=== PATIENT | male | born 1955 | race Caucasian/White ===

== ENCOUNTER 2017-04-24 10:27 | Day surgery (SDC) | payer BC ==
[~2017-04-24] VITALS: Ht 180.3 cm; Wt 73.5 kg
[2017-04-24] VITALS (10 sets, daily range): BP systolic 107–155; BP diastolic 50–79; PULSE 59–72; TEMP 97.3–98.4
[2017-04-24] MEDS ORDERED: DILANTIN 100MG100 MG PO ×2 (11:28)
[2017-04-24] MEDS ORDERED: PRINIVIL10 MG PO (11:29)
[2017-04-24] MEDS ORDERED: LIPITOR 40MG TA40 MG PO (11:29)
[2017-04-24] MEDS ORDERED: IMDUR 30MG30 MG/TAB PO (11:30)
[2017-04-24] MEDS ORDERED: NORVASC 5MG5 MG/TAB PO (11:30)
[2017-04-24] MEDS ORDERED: PROTONIX 40MG T40 MG PO (11:30)
[2017-04-24] MEDS ORDERED: ASPIRIN E.C. 8181 MG PO (11:31)
[2017-04-24] MEDS ORDERED: NITROSTAT0.4 MG/TAB SL (11:31)
[2017-04-24] MEDS ORDERED: MULTI VITAMINS1 TAB PO (11:32)
[2017-04-24] MEDS ORDERED: MAG-OX 400400 MG/TAB PO (11:32)
[2017-04-25 02:10] VITALS: BP 101/56; PULSE 60; TEMP 97.5
[2017-04-25 06:02] VITALS: BP 113/59; PULSE 62; TEMP 97.6
[2017-04-25 10:03] VITALS: BP 120/50; PULSE 66; TEMP 97.5
[2017-04-25 13:19] VITALS: BP 108/56; PULSE 63; TEMP 98
== END 2017-04-25 15:10 | disposition home or self-care (01) ==
LOC: SDCO 10:27 → SURG 15:35 → SDCO 04-25 15:10
DX: C67.9 Malignant neoplasm of bladder, unspecified (principal); N30.30 Trigonitis without hematuria; N30.20 Other chronic cystitis without hematuria; M19.049 Primary osteoarthritis, unspecified hand; I25.2 Old myocardial infarction; I10 Essential (primary) hypertension; F17.210 Nicotine dependence, cigarettes, uncomplicated; E78.00 Pure hypercholesterolemia, unspecified; Z88.2 Allergy status to sulfonamides; Z82.49 Family history of ischemic heart disease and other diseases of the circulatory system; Z68.22 Body mass index [BMI] 22.0-22.9, adult
CPT/HCPCS: OP; C1758; C1769; C2617; J0690; J1170; J2704; J3010; J7120

== ENCOUNTER 2017-06-12 05:22 | Day surgery (SDC) | payer BC ==
[~2017-06-12] VITALS: Ht 180.3 cm; Wt 73.2 kg
[~2017-06-12 05:22] MED LIST: ASPIRIN E.C. 8181 MG PO; DILANTIN 100MG100 MG PO; IMDUR 30MG30 MG/TAB PO; LIPITOR 40MG TA40 MG PO; MAG-OX 400400 MG/TAB PO; MULTI VITAMINS1 TAB PO; NITROSTAT0.4 MG/TAB SL; NORVASC 5MG5 MG/TAB PO; PRINIVIL10 MG PO; PROTONIX 40MG T40 MG PO
[2017-06-12 05:57] VITALS: BP 118/61; PULSE 72; TEMP 97.3
[2017-06-12 09:35] VITALS: BP 127/65; PULSE 66; TEMP 97.2
[2017-06-12 09:45] VITALS: TEMP 97.2
[2017-06-12 09:50] VITALS: BP 123/67; PULSE 66
[2017-06-12 10:10] VITALS: BP 118/66; PULSE 67
== END 2017-06-12 12:11 | disposition home or self-care (01) ==
LOC: SDCO 05:22
DX: C67.9 Malignant neoplasm of bladder, unspecified (principal); N30.30 Trigonitis without hematuria; N30.00 Acute cystitis without hematuria; I10 Essential (primary) hypertension; E78.00 Pure hypercholesterolemia, unspecified; Z79.82 Long term (current) use of aspirin; F17.210 Nicotine dependence, cigarettes, uncomplicated; Z88.2 Allergy status to sulfonamides; Z68.22 Body mass index [BMI] 22.0-22.9, adult; M19.049 Primary osteoarthritis, unspecified hand
CPT/HCPCS: J0690; J1100; J2704; J3010; J7120; Q9967